=== PATIENT | female | born 1995 | race Caucasian/White ===

== ENCOUNTER 2022-09-05 00:07 | Emergency (ER) | payer MEDICAID, OTHER ==
[~2022-09-05] VITALS: Ht 162.6 cm; Wt 85.7 kg
[2022-09-05] MEDS ORDERED: ZOSYN 3.375GM +NS 50ML IVPB SCH (00:30)
[2022-09-05 00:43] LABS: BASOPHILS % (AUTO) 0.1 % (0.0-5.0); EOSINOPHILS % (AUTO) 0.3 % (0.0-8.0); LYMPHOCYTES % (AUTO) 24.4 % (21.0-51.0); MEAN CORPUSCULAR HEMOGLOBIN 33.1 pg (27.0-33.0); MEAN CORPUSCULAR HGB CONC 35.1 g/dL (32.0-36.0); MEAN CORPUSCULAR VOLUME 94.1 fL (79-99); MONOCYTES % (AUTO) 4.2 % (3.0-13.0); NEUTROPHILS % (AUTO) 70.7 % (40.0-77.0); PLATELET COUNT (AUTO) 233 K/uL (130-400); RED BLOOD CELL COUNT(AUTO) 3.93 MIL/uL (4.00-5.50); RED CELL DISTRIBUTION WIDTH 12.1 % (11.0-15.5); WHITE BLOOD COUNT (AUTO) 9.8 K/uL (4.8-10.8)
[2022-09-05 00:44] LABS: APPEARANCE,URINE CLEAR (CLEAR); BILIRUBIN,URINE NEGATIVE (NEGATIVE); COLOR,URINE YELLOW (YELLOW); GLUCOSE, URINE (UA) NEGATIVE (NEGATIVE); KETONES,URINE 150 mg/dL (NEGATIVE); LEUKOCYTE ESTERASE ,URINE NEGATIVE Leu/uL (NEGATIVE); NITRATE,URINE NEGATIVE (NEGATIVE); OCCULT BLOOD,URINE NEGATIVE (NEGATIVE); PH,URINE 6.5 (5.0-8.0); PROTEIN,URINE 20 mg/dL (NEGATIVE); UROBILINOGEN,URINE 0.2 mg/dL (0.2-1.0)
[2022-09-05 00:49] LABS: MUCUS,URINE FEW LPF (None Seen); SQUAMOUS EPITHELIAL CELL,UR MOD /HPF (0-2)
[2022-09-05 00:52] LABS: CREATININE 0.6 mg/dL (0.5-1.5); POTASSIUM 3.4 mmol/L (3.5-5.1)
[2022-09-05 00:57] LABS: ALBUMIN 3.8 g/dL (3.5-5.0); TOTAL PROTEIN, SERUM 8.1 g/dL (6.0-8.3)
[2022-09-05] MEDS ORDERED: ONDANSETRON 4MG INJ IVP ONE ×2 (01:00→01:30)
[2022-09-05] MEDS ORDERED: 0.9%NACL 1000ML 1,000 ML IV ONE (01:30)
[2022-09-05 01:55] VITALS: BP 134/71
[2022-09-05] MEDS ORDERED: ONDA-104 PO (02:03)
== END 2022-09-05 02:25 | disposition home or self-care (01) ==
LOC: EDH 00:07
DX: O26.891 Other specified pregnancy related conditions, first trimester (principal); E86.0 Dehydration; K59.00 Constipation, unspecified; O21.9 Vomiting of pregnancy, unspecified; Z3A.08 8 weeks gestation of pregnancy
CPT/HCPCS: 99285; 96374; 76801; 80053; 85025; 81001; 36415; J2405

== ENCOUNTER 2022-10-30 15:19 | Emergency (ER) | payer MEDICAID ==
[~2022-10-30] VITALS: Ht 162.6 cm; Wt 84.4 kg
[~2022-10-30 15:19] MED LIST: ONDA-104 PO
[2022-10-30 16:10] LABS: RAPID GROUP A STREP negative (NEGATIVE)
[2022-10-30 16:18] LABS: SARS-CoV-2, RNA, NAAT NEGATIVE SARS CoV-2 (NEGATIVE)
[2022-10-30 16:24] LABS: INFLUENZA TYPE A Negative For Type A (NEGATIVE); INFLUENZA TYPE B Negative For Type B (NEGATIVE)
[2022-10-30] MEDS ORDERED: ACET-66 PO (17:29)
[2022-10-30] MEDS ORDERED: ACET237L PO (17:29)
[2022-10-30] MEDS ORDERED: AMOX500C2 PO (17:29)
[2022-10-30] MEDS ORDERED: FLUT16H NASAL (17:29)
[2022-10-30 17:36] VITALS: BP 138/81; PULSE 94; RESP 16; O2SAT 98
== END 2022-10-30 17:51 | disposition home or self-care (01) ==
LOC: EDH 15:19
DX: J01.80 Other acute sinusitis (principal); R05.9 Cough, unspecified; Z20.822 Contact with and (suspected) exposure to COVID-19
CPT/HCPCS: 99283; 87635; 87880; 87804 ×2; C9803

== ENCOUNTER 2023-04-19 17:37 | Emergency (ER) | payer BC ==
[~2023-04-19] VITALS: Ht 162.6 cm; Wt 77.6 kg
[2023-04-19 18:41] LABS: APPEARANCE,URINE CLEAR (CLEAR); BILIRUBIN,URINE NEGATIVE (NEGATIVE); COLOR,URINE LIGHT-YELLOW (YELLOW); GLUCOSE, URINE (UA) NEGATIVE (NEGATIVE); KETONES,URINE NEGATIVE (NEGATIVE); LEUKOCYTE ESTERASE ,URINE NEGATIVE Leu/uL (NEGATIVE); NITRATE,URINE NEGATIVE (NEGATIVE); OCCULT BLOOD,URINE MODERATE (NEGATIVE); PH,URINE 5.5 (5.0-8.0); PROTEIN,URINE NEGATIVE (NEGATIVE); UROBILINOGEN,URINE 0.2 mg/dL (0.2-1.0)
[2023-04-19 18:44] LABS: ADD UA MICROSCOPIC YES
[2023-04-19 19:02] LABS: MUCUS,URINE RARE LPF (None Seen); SQUAMOUS EPITHELIAL CELL,UR RARE /HPF (0-2)
[2023-04-19 20:43] LABS: BASOPHILS # (AUTO) 0.04 K/uL (0.00-0.20); BASOPHILS % (AUTO) 0.4 % (0.0-5.0); EOSINOPHILS # (AUTO) 0.11 K/uL (0.00-0.70); EOSINOPHILS % (AUTO) 1.2 % (0.0-8.0); IMMATURE GRANULOCYTE ABSOLUTE 0.07 K/uL (0-1); LYMPHOCYTES # (AUTO) 3.8 K/uL (1.0-4.8); LYMPHOCYTES % (AUTO) 39.7 % (21.0-51.0); MEAN CORPUSCULAR HGB CONC 34.7 g/dL (32.0-36.0); MONOCYTES # (AUTO) 0.4 K/uL (0.1-1.0); MONOCYTES % (AUTO) 4.5 % (3.0-13.0); NEUTROPHILS # (AUTO) 5.1 K/uL (1.8-7.7); NEUTROPHILS % (AUTO) 53.5 % (40.0-77.0); PLATELET COUNT (AUTO) 263 K/uL (130-400); WHITE BLOOD COUNT (AUTO) 9.5 K/uL (4.8-10.8)
[2023-04-19 21:02] LABS: INR <= 0.93 (0.85-1.15); PROTHROMBIN TIME 10.3 SEC (9.6-11.6)
[2023-04-19 21:03] LABS: PARTIAL THROMBOPLASTIN TIME 28.5 SEC (26.3-35.5)
[2023-04-19 21:11] LABS: CREATININE 0.7 mg/dL (0.5-1.5); POTASSIUM 3.9 mmol/L (3.5-5.1)
[2023-04-19 21:13] LABS: ALBUMIN 3.3 g/dL (3.5-5.0); BILIRUBIN,TOTAL 0.4 mg/dL (0.2-1.0); TOTAL PROTEIN, SERUM 7.3 g/dL (6.0-8.3)
[2023-04-19 22:30] VITALS: BP 133/83; PULSE 66; RESP 16; O2SAT 98
== END 2023-04-19 22:33 | disposition home or self-care (01) ==
LOC: EDH 17:37
DX: N93.9 Abnormal uterine and vaginal bleeding, unspecified (principal); R20.2 Paresthesia of skin
CPT/HCPCS: 36415; 76856; 80053; 81001; 85025; 85610; 85730; 86850; 86900; 86901; 93971